=== PATIENT | female | born 1975 | race Caucasian/White ===

== ENCOUNTER 2017-01-18 18:43 | Emergency (ER) | payer BC ==
--- NOTE | 2017-01-18 19:04 | ERNOTE ---
<Bill Watts - Last Filed: 01/18/17 19:49> Abdominal HPI - General Chief Complaint: Abdominal Pain Time Seen by Provider: 01/18/17 18:57 Source: patient Exam Limitations: no limitations - Immun/Allergies/Home Medications Immunizatons: IMMUNIZATION HX Immunizations Up to Date Yes History of Influenza Vaccine No Hx Pneumococcal Vaccination No Allergies/Adverse Reactions: Allergies Sulfa (Sulfonamide Antibiotics) Allergy (Unknown, Verified 01/18/17 18:54) Other acetaminophen [From Vicodin] Adverse Reaction (Unknown, Verified 01/18/17 18:54) Other hydrocodone [From Vicodin] Adverse Reaction (Unknown, Verified 01/18/17 18:54) Other Home Medications: HOME MEDICATIONS Ascorbic Acid [Vitamin C] 500 mg PO DAILY 01/18/17 [Last Taken Unknown] Atorvastatin Calcium 40 mg PO DAILY 01/18/17 [Last Taken Unknown] B12/Levomefolate Calcium/B-6 [Folbic Rf Tablet] 1 each PO 10XD 01/18/17 [Last Taken Unknown] Biotin 10,000 mcg PO DAILY 01/18/17 [Last Taken Unknown] Chromium Amino Acid Chelate [Chromium] 200 mcg PO DAILY 01/18/17 [Last Taken Unknown] FLUoxetine HCL [Fluoxetine HCl] 30 mg PO DAILY 01/18/17 [Last Taken Unknown] Glimepiride 4 mg PO BID 01/18/17 [Last Taken Unknown] Glucosamine/Chondroitin/C/Wander [Glucosamine Chondroitin Caplet] 2,400 mg PO DAILY 01/18/17 [Last Taken Unknown] Magnesium Oxide [Magnesium] 400 mg PO DAILY 01/18/17 [Last Taken Unknown] Nabumetone 750 mg PO BID 01/18/17 [Last Taken Unknown] Pioglitazone HCl 30 mg PO DAILY 01/18/17 [Last Taken Unknown] Pramipexole Di-HCl [Pramipexole Dihydrochloride] 0.25 mg PO DAILY 01/18/17 [ Last Taken Unknown] Thyroid,Pork [Globe Thyroid] 120 mg PO DAILY 01/18/17 [Last Taken Unknown] metFORMIN HCL [Fortamet] 500 mg PO DAILY 01/18/17 [Last Taken Unknown] - History of Present Illness Narrative: Patient presents with abdominal pain in the very low right lower quadrant. Pain is pounding going on for several days and describes it as achy in nature and mild to moderate in severity. Timing: constant Quality: mild Activities at Onset: none Associated Symptoms: Present: denies symptoms Prior Abdominal Problems: Present: none Prior Treatment: Present: recently seen, treated by physician Review of Systems - Review of Systems Constitutional: Present: See HPI EYE: Present: no symptoms reported ENT: Present: no symptoms reported Respiratory: Present: no symptoms reported Cardiology: Present: no symptoms reported Gastrointestinal/Abdominal: Present: abdominal pain - mild Genitourinary: Present: no symptoms reported Musculoskeletal: Present: no symptoms reported Skin: Present: no symptoms reported Neurological: Present: no symptoms reported Endocrine: Present: no symptoms reported Hematologic/Lymphatic: Present: no symptoms reported Psych: Present: no symptoms reported - Patient's Past Medical History Patient History - Medical: Diabetes Type 2, Hypothyroidism, Other Patient History - Cardiac/Respiratory: Hyperlipidemia Patient History - Cancer: No Hx of Cancer Patient History - Surgical Procedures: T & A, Other, Hernia Repair Patient History - Other: None LMP (females 10-50): other - Social History Living Situations: home Psych History: No pertinent hx Smoking Status: Former smoker - Immunizations Immunizations Up to Date: Yes Hx Pneumococcal Vaccination: No History of Influenza Vaccine: No Physical Exam - Physical Exam General Appearance: Present: wd/wn, alert, mild distress - but only on palpation Eye Exam: Normal inspection: bilateral, PERRL: bilateral Ears, Nose, Throat: Present: normal ENT inspection, H, normal pharynx Neck: Present: normal inspection, nontender Respiratory: Present: no respiratory distress, normal breath sounds, no accessory muscle use, chest nontender, lungs clear Cardiovascular/Chest: Present: regular rate, rhythm, no murmur, normal peripheral pulses Gastrointestinal/Abdominal: Present: normal bowel sounds, nondistended, soft, no organomegaly, tenderness - however patient had a negative McBurney's, negative guarding, negative rebound and negative rigidity Rectal Exam: Present: deferred Back Exam: Present: normal inspection, normal range of motion Extremity Exam: Present: normal inspection, non-tender, no edema, normal range of motion Neurological Exam: Present: alert, oriented, normal mood/affect Skin Exam: Present: normal color, warm/dry Lymphatic Exam: Present: no adenopathy ED Progress - Results and Orders Patient's Lab Results:: I have reviewed the patient's lab results. - Vital Signs Patient's Vital Signs:: I have reviewed the patient's vital signs. Vital Signs: Vital Signs 01/18/17 18:48 Temperature 36.7 C Pulse Rate 76 Respiratory 16 Rate Blood Pressure 123/96 O2 Sat by Pulse 97 Oximetry - Progress/Reassessment Chief Complaint: Abdominal Pain - Transfer of Care Physician Sign Out: Bill Watts Receiving Physician: Rudi Ambrose Pending Results: X-ray results - US results Departure - Departure Clinical Impression: Abdominal pain Qualifiers: Abdominal location: right lower quadrant Qualified Code(s): R10.31 - Right lower quadrant pain Constipation Qualifiers: Constipation type: unspecified constipation type Qualified Code(s): K59.00 - Constipation, unspecified Disposition: Home self-care Condition: Good Instructions: Abdominal Pain, Adult, [id number] Additional Instructions: Try milk of magnesia 1-2 times a day for a day or two to see if that helps your pain. If not improving see your primary care doctor for further referral or evaluation <Rudi Ambrose - Last Filed: 01/19/17 01:23> Abdominal HPI - Immun/Allergies/Home Medications Immunizatons: IMMUNIZATION HX Immunizations Up to Date Yes History of Influenza Vaccine No Hx Pneumococcal Vaccination No ED Progress - Results and Orders Patient's Lab Results:: I have reviewed the patient's lab results. Results and Orders: Laboratory Tests 01/18/17 01/18/17 01/18/17 19:11 19:11 19:11 WBC 10.6 H Hgb 13.6 Hct 40.3 Plt Count 366 Sodium 139 Potassium 3.9 Chloride 102 Carbon Dioxide 24.6 BUN 12 Creatinine 0.71 Random Glucose 157 H Calcium 9.0 Total Bilirubin 0.4 AST 6 ALT 23 Alkaline Phosphatase 97 Total Protein 7.3 Albumin 3.6 Amylase 39 Lipase 135 Urine Color Urine Appearance Urine pH Ur Specific [place] Urine Protein Urine Glucose (UA) Urine Ketones Urine Blood Urine Nitrate Urine Bilirubin Urine Urobilinogen Ur Leukocyte Esterase Urine RBC Urine WBC Ur Epithelial Cells Urine Bacteria Urine Culture Comments Maternal Serum HCG 0 01/18/17 20:01 WBC Hgb Hct Plt Count Sodium Potassium Chloride Carbon Dioxide BUN Creatinine Random Glucose Calcium Total Bilirubin AST ALT Alkaline Phosphatase Total Protein Albumin Amylase Lipase Urine Color Yellow Urine Appearance Clear Urine pH 6.0 Ur Specific [place] <=1.005 Urine Protein Negative Urine Glucose (UA) Negative Urine Ketones Negative Urine Blood Negative Urine Nitrate Negative Urine Bilirubin Negative Urine Urobilinogen Normal Ur Leukocyte Esterase Negative Urine RBC None seen Urine WBC Trace H Ur Epithelial Cells 0-5 Urine Bacteria 2+ H Urine Culture Comments No culture indicated Maternal Serum HCG - Vital Signs Patient's Vital Signs:: I have reviewed the patient's vital signs. Vital Signs: Vital Signs 01/18/17 01/18/17 01/18/17 18:48 19:16 19:30 Temperature 36.7 C Pulse Rate 76 72 76 Respiratory 16 15 Rate Blood Pressure 123/96 116/71 125/80 O2 Sat by Pulse 97 95 93 Oximetry 01/18/17 01/18/17 19:45 20:39 Temperature Pulse Rate 71 71 Respiratory 16 15 Rate Blood Pressure 125/58 138/69 O2 Sat by Pulse 97 96 Oximetry - CT/Ultrasound CT/Ultrasound Narrative: Pelvic U/S transabdominal and transvaginal: IMPRESSION: Normal ovaries without cyst, mass or evidence of ovarian torsion. Small fibroid within the uterus. Electronically signed by Dominique Lucio D.O.. CT abd/ pelvis with contrast No abnormalities noted appendix normal small bowel normal caliber Per [facility] premliminary report - Progress/Reassessment Progress:: Improved Progress Note-Subjective: 01/18/17 21:22 Discussed Pt symptoms and negative U/S. Pt was told by her PCP that she " either has appendicitis or diverticulitis". Pt concerned that we may be missing something. Due to mildly elevated WBC will order CT abd/pelvis 01/19/17 00:12 Ct abd pelvis results reviewed. I was unable to directly view the films due to technical difficulties. discussed constipation suggested on the clinic clerk film that was available from the CT.
[2017-01-18 19:18] LABS: Hematocrit 40.3 % (37.0-47.0); Hemoglobin 13.6 gm/dL (12.5-16.0); Mean Cell Volume 84.7 fl (78-100); Mean Corpuscular Hemoglobin 28.6 pg (27-31); Mean Corpuscular Hgb Conc 33.7 g/dl (32-36); Mean Platelet Volume 10.1 fl (6.0-9.5); Neutrophil # 5.4 K/mm3 (1.3-6.0); Neutrophil % 50.9 % (42-75.0); Platelet Count 366 K/mm3 (150-450); Red Blood Count 4.76 M/mm3 (4.2-5.4); Red Cell Distribution Width 12.7 % (11.5-14.0); White Blood Count 10.6 K/mm3 (4.0-10.5)
[2017-01-18 19:31] LABS: Albumin * 3.6 gm/dl (3.4-5.0); Anion Gap 16.3 mmol/L (6.8-13.8); BUN/Creatinine Ratio 16.9 (9.0-21.6); Bilirubin, Total 0.4 mg/dL (0.0-1.1); Carbon Dioxide 24.6 mmol/L (24-32.6); Potassium 3.9 mmol/L (3.4-4.6); Total Protein 7.3 gm/dL (6.2-8.2)
[2017-01-18 20:17] LABS: Urine Bilirubin Negative (NEGATIVE); Urine Blood Negative /ul (NEGATIVE); Urine Ketone Negative (NEGATIVE); Urine Nitrite Negative (NEGATIVE); Urine Protein Negative (NEGATIVE); Urine Specific Gravity <=1.005 SP.GR. (1.005-1.010); Urine Urobilinogen Normal (NORMAL)
[2017-01-18 20:40] LABS: Urine Appearance Clear; Urine Bacteria 2+; Urine Color Yellow; Urine RBC None Seen /hpf (0-5); Urine WBC TRACE /hpf (0-5)
[2017-01-18] MEDS ORDERED: DIATRIZOATE MEGLUMINE, SODIUM 30 ML BTL ONE (21:22)
[2017-01-18 23:51] VITALS: BP 130/80
== END 2017-01-19 00:26 | disposition home or self-care (01) ==
LOC: ER 18:43
DX: R10.31 Right lower quadrant pain (principal); K59.00 Constipation, unspecified; E11.9 Type 2 diabetes mellitus without complications; E03.9 Hypothyroidism, unspecified; E78.5 Hyperlipidemia, unspecified